=== PATIENT | male | born 2000 | race Caucasian/White ===

== ENCOUNTER 2023-04-11 09:07 | Emergency (ER) | payer SELFPAY ==
[2023-04-11 09:16] VITALS: BP 123/79; PULSE 56; RESP 16; TEMP 36.9; O2SAT 100
--- NOTE | 2023-04-11 09:30 | ED.CHESTPAIN ---
HPI - Chest Pain General Chief Complaint: Chest Pain Stated Complaint: Chest Pain Time Seen by Provider: 04/11/23 09:20 Source: patient and RN notes reviewed Mode of arrival: ambulatory Limitations: no limitations History of Present Illness HPI narrative: Patient presents today complaining of intermittent sternal chest pain x3 days. States the chest pain occurs 2-4 times per day and lasts for approximately 10 minutes each occurrence. Denies any additional symptoms to include shortness of breath, abdominal pain, numbness or tingling in the extremities, radiation of the pain, sweats, nausea or vomiting. Patient took a dose of Tums a few days ago, which did seem to help with his symptoms, which took some today and they did not help. Currently rates his pain 2/10. Denies history of acid reflux. Denies history of anxiety or panic attacks. Reports history of asthma. States he was sick with cold symptoms for approximately 1 week. Symptoms subsided just prior to onset of chest pain symptoms. Related Data Allergies Allergy/AdvReac Type Severity Reaction Status Date / Time No Known Allergies Allergy Verified 04/11/23 09:16 Review of Systems Review of Systems: CONSTITUTIONAL: Denies body aches, fever, chills, or sweats. EYES: Denies visual changes, redness, or discharge. ENT: Denies rhinorrhea, congestion, sore throat, or otalgia. CARDIOVASCULAR: Denies palpitations, or edema.+ sternal chest pain RESPIRATORY: Denies cough or dyspnea. GASTROINTESTINAL: Denies abdominal pain, nausea, vomiting, or diarrhea. GENITOURINARY: Denies dysuria or hematuria. SKIN: Denies rash, itching, or wounds. MUSCULOSKELETAL: Denies back pain, joint pain, or myalgia. NEUROLOGIC: Denies headache, numbness, tingling, or weakness. PSYCH: Denies depression or anxiety. [facility] Past Medical History Medical History Anxiety Asthma Surgical History Surgical History No pertinent past surgical history Social History Social History Smoking status: Unknown if ever smoked Gender identity (if verbalized by the patient): Male Comments At time of signature, I have reviewed and agree with nursing past medical, surgical, social and family history unless otherwise noted. Please see nursing chart for further information. There is no relevant family history pertinent to the presenting complaint Exam Narrative: GENERAL: Well-appearing, well-nourished, and in no acute distress. HEAD: Normocephalic, atraumatic. EYES: EOMI. PERRL. No redness or drainage. Conjunctivae normal. ENT: Mucous membranes pink and moist. NECK: Normal AROM. Supple. No lymphadenopathy. CHEST: No respiratory distress. Clear to auscultation. Mild tenderness along bilateral sternal borders. HEART: Regular rate and rhythm. No murmur appreciated. Normal peripheral pulses. ABDOMEN: Soft, nontender, nondistended, normal active bowel sounds. EXTREMITIES: Normal range of motion. No edema. 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 Dorsiflexion and plantar flexion equal and strong against resistance. SKIN: Warm, dry, no rash. Capillary refill normal. Normal skin turgor. NEURO: No focal deficits. Alert and oriented x3. Gait steady. PSYCH: Normal affect. No signs of depression or anxiety. Course Course Level of Care: Express Care Visit Vital Signs Vital signs: Vital Signs Temperature 98.5 F 04/11/23 09:16 Pulse Rate 56 L 04/11/23 09:16 Respiratory Rate 16 04/11/23 09:16 Blood Pressure 123/79 04/11/23 09:16 Pulse Oximetry 100 04/11/23 09:16 Oxygen Delivery Room Air 04/11/23 09:16 Temperature 98.5 F 04/11/23 09:16 Pulse Rate 56 L 04/11/23 09:16 Respiratory Rate 16 04/11/23 09:16 Blood Pressure 123/79 04/11/23 09:16 Pulse Oximetry 100 04/11/23 09:16 Oxygen Delivery Room Air
--- NOTE | 2023-04-11 15:49 | ECG_ITS ---
Measurements Intervals [place] Rate: 52 P: 74 NE: 163 QRS: 88 QRSD: 90 T: 72 QT: 430 QTc: 403 Interpretive Statements SINUS BRADYCARDIA BORDERLINE ECG NO PREVIOUS ECG AVAILABLE FOR COMPARISON Electronically Signed On 04-11-2023 16:01:41 CDT by Dalton Tellez D.O.
== END 2023-04-11 09:52 | disposition home or self-care (01) ==
PROVIDERS: Emergency Provider Nurse Practitioner
DX: M94.0 Chondrocostal junction syndrome [Tietze] (principal); J45.909 Unspecified asthma, uncomplicated
CPT/HCPCS: 93005; 99213; G0463